=== PATIENT | male | born 1970 | race Caucasian/White ===

== ENCOUNTER 2018-07-06 00:04 | Inpatient (IN) | END 2018-07-06 16:15 | disposition home health service (06) | DRG 502 ==

== ENCOUNTER 2019-08-09 09:44 | Inpatient (IN) | payer OTHER ==
[~2019-08-09] VITALS: Ht 167.6 cm; Wt 80.0 kg
[2019-08-09] VITALS (16 sets, daily range): BP systolic 117–146; BP diastolic 77–98; PULSE 54–68; RESP 11–19; Ht 167.6 cm; Wt 80.0 kg
[~2019-08-09 09:44] MED LIST: ACET325T40 PO; ASPI-817 PO; ATOR-2 PO; CLOP75TA28 PO; HYDR-3601 PO; LEVO500T48 PO; METF500T PO; SULF-182 PO
[2019-08-09] MEDS ORDERED: CLOPIDOGREL 300 MG TAB PO STA (09:49)
[2019-08-09] MEDS ORDERED: HEPARIN 1000 UNITS/ML 10 ML INJ IV STA (09:49)
[2019-08-09] MEDS ORDERED: HEPARIN 25000 UNITS/250 ML 250 ML IV STA (09:49)
[2019-08-09] MEDS ORDERED: ONDANSETRON 4 MG INJ IV STA (09:57)
[2019-08-09] MEDS ORDERED: LIDOCAINE 1% (MDV) 20 ML INJ ONE (10:34)
[2019-08-09] MEDS ORDERED: HEPARIN 1000 UNITS/ML 10 ML INJ ONE (10:34)
[2019-08-09] MEDS ORDERED: ONDANSETRON 4 MG INJ ONE (10:35)
[2019-08-09] MEDS ORDERED: FENTAnyl 50 MCG/ML VIAL ONE (10:44)
[2019-08-09] MEDS ORDERED: MIDAZOLAM 1 MG/ML 2 ML INJ ONE (10:44)
[2019-08-09] MEDS ORDERED: VERAPAMIL 5 MG INJ ONE (10:47)
[2019-08-09] MEDS ORDERED: NITROGLYCERIN (IC) 100 MCG/ML INJ ONE (11:18)
[2019-08-09] MEDS ORDERED: PRASUGREL HYDROCHLORIDE 10 MG TABLET PO ONE (11:20)
[2019-08-09] MEDS ORDERED: IODIXANOL LOCM 100 ML BTL ONE (11:28)
[2019-08-09] MEDS ORDERED: IOHEXOL 350MG/ML 50 ML BTL ONE (11:28)
[2019-08-09] MEDS ORDERED: EPTIFIBATIDE 20 ML ONE (11:34)
[2019-08-09] MEDS ORDERED: EPTIFIBATIDE 100 ML IV ONE (11:34)
[2019-08-09] MEDS ORDERED: SOD CHLORIDE 0.9% 1,000 ML IV SCH (11:38)
[2019-08-09] MEDS ORDERED: OXYCODONE/ACETAMINOPHEN (5/325) TAB PO PRN ×2 (12:00)
[2019-08-09] MEDS ORDERED: morphine 2 MG INJ IV PRN (12:00)
[2019-08-09] MEDS ORDERED: POTASSIUM CHLORIDE (SR) 20 MEQ TAB PO STA (18:43)
[2019-08-09] MEDS ORDERED: ATORVASTATIN 80 MG TAB PO SCH (21:00)
[2019-08-09] MEDS ORDERED: HEPARIN 25000 UNITS/250 ML 250 ML IV SCH (21:30)
[2019-08-09] MEDS ORDERED: HEPARIN 5,000 UNIT/1 ML VIAL IV SCH (21:30)
[2019-08-10] VITALS (17 sets, daily range): BP systolic 100–127; BP diastolic 67–98; PULSE 53–66; RESP 13–23
[2019-08-10] MEDS ORDERED: CLOPIDOGREL 75 MG TAB PO ONE (09:00)
[2019-08-10] MEDS ORDERED: ASPIRIN (EC) 81 MG TAB PO SCH (09:00)
[2019-08-10] MEDS ORDERED: PRASUGREL HYDROCHLORIDE 10 MG TABLET PO SCH (09:00)
[2019-08-11] MEDS ORDERED: CLOPIDOGREL 75 MG TAB PO SCH (09:00)
== END 2019-08-10 17:12 | disposition home or self-care (01) | DRG 249 ==
LOC: E/R 09:44 → CCL 10:25 → SDS 10:25 → CCL 11:55 → ICU 12:05 → UNDOADMIN 12:05 → ICU 13:26
PROVIDERS: ADMIT Family Medicine; ATTEND Family Medicine
PROC: 02713DZ Dilation of Coronary Artery, Two Arteries with Intraluminal Device, Percutaneous Approach (ICD-10-PCS; principal; 2019-08-09)
PROC: 4A023N7 Measurement of Cardiac Sampling and Pressure, Left Heart, Percutaneous Approach (ICD-10-PCS; 2019-08-09)
PROC: B211YZZ Fluoroscopy of Multiple Coronary Arteries using Other Contrast (ICD-10-PCS; 2019-08-09)
DX: I21.3 ST elevation (STEMI) myocardial infarction of unspecified site (principal); M62.82 Rhabdomyolysis; I10 Essential (primary) hypertension; E78.5 Hyperlipidemia, unspecified; R73.9 Hyperglycemia, unspecified; I25.10 Atherosclerotic heart disease of native coronary artery without angina pectoris; Z87.891 Personal history of nicotine dependence; Z95.5 Presence of coronary angioplasty implant and graft; R00.1 Bradycardia, unspecified
CPT/HCPCS: 36415; 71045; 80048; 80061; 80307; 81003; 82550; 82553; 83036; 83735; 84443; 84484; 85025; 87081; 92928; 93005; 93306; 93458; 96374; 96375; C1725; C1874; C1887; C9606; J1327; J1644; J2250; J2405; J3010; Q9967